=== PATIENT | female | born 1960 | race African-American/Black ===

== ENCOUNTER 2016-10-15 07:03 | Emergency (ER) | payer OTHER ==
--- NOTE | ~2016-10-15 | CR126 ---
[facility] A Service of [facility] & [facility] RADIOLOGY TEXT RESULTS PATIENT: JOSE GUADALUPE DE LOS SANTOS LOCATION: [facility] : 56 UNIT #: [id number] AGE: [address]: Odilia Araujo SEX: F ORDER DR: [id number] [facility] [address] [place], [place] [address] [id number] E MR#: [id number] Acc #: [id number] NAME: JOSE GUADALUPE DE LOS SANTOS. : 1960 SEX: F STUDY DATE/TIME: 10/15/2016 7:44 UNIT: [facility] ROOM: STUDY DESCRIPTION: CR Foot Complete Min 3 View Lt Attending Physician: Odilia Araujo Pa-C Ordering Physician: Ed Doctor [id number] [facility] Primary Care Physician: Primary Care Physician No MEDICAL IMAGING REPORT This report is preliminary unless electronic signature is present EXAM Left foot 3 views HISTORY Pain and swelling left foot, tripped and fell down stairs. FINDINGS Three views of the left foot are obtained. Bony elements appear intact and in normal alignment. No fractures are identified. Small calcaneal spur is present. CONCLUSION Negative. Dictated by... Enrique Hickey M.D. THIS IS AN ELECTRONICALLY VERIFIED REPORT Enrique Hickey M.D. at 10/16/2016 3:21 PM Addi TD: 10/15/2016 10:08 JOB #: [id number] MEDICAL IMAGING REPORT Page 1 of 1 COPY
== END 2016-10-15 08:27 | disposition home or self-care (01) ==
LOC: CFTX 07:03 → CED 07:03 → CFTX 07:47
DX: S90.112A Contusion of left great toe without damage to nail, initial encounter (principal); F17.210 Nicotine dependence, cigarettes, uncomplicated; Z88.0 Allergy status to penicillin; Z88.5 Allergy status to narcotic agent; W10.9XXA Fall (on) (from) unspecified stairs and steps, initial encounter; Y92.009 Unspecified place in unspecified non-institutional (private) residence as the place of occurrence of the external cause
CPT/HCPCS: 73630; 99283